=== PATIENT | male | born 1965 ===

== ENCOUNTER 2021-04-23 17:39 | Emergency (ER) | payer SELFPAY ==
[2021-04-23] MEDS ORDERED: DOPAMINE/D5W PMX 400 MG/250 ML ONE (18:24)
[2021-04-23] MEDS ORDERED: CALCIUM CHLORIDE 10%, 10ML SYR ONE (18:24)
[2021-04-23] MEDS ORDERED: EPINEPHRINE SYRINGE 0.1 MG/ML, 10ML ONE (18:24)
[2021-04-23] MEDS ORDERED: CODE BLUE RESPONSE XX ONE (18:24)
[2021-04-23] MEDS ORDERED: SODIUM BICARB 8.4%, 50ML SYRINGE ONE (18:24)
[2021-04-23] MEDS ORDERED: NALOXONE 1 MG/ML, 2ML ONE (18:24)
[2021-04-23] MEDS ORDERED: PLEASE ENTER HEIGHT AND WEIGHT MC SCH (18:30)
[2021-04-23] MEDS ORDERED: SODIUM CHLORIDE FLUSH 10ML SYR IVF ONE (18:30)
[2021-04-23] MEDS ORDERED: SODIUM CHLORIDE 0.9% 1,000ML IVBOLUS ONE (18:30)
[2021-04-23] MEDS ORDERED: PLEASE ENTER ALLERGIES MC SCH (18:30)
--- NOTE | 2021-04-23 18:31 | NUR ---
SEE CODE SHEET FOR DETAILS
--- NOTE | 2021-04-23 18:53 | NUR ---
SPOKE WITH CORENOR AND DUE TO NO NEXT OF KIN IDENTIFIED AND UNKNOWN CERCUMSTANCES REGARDING SITUATION THIS WILL BE A CORONERS CASE. [employer] NETWORK NOTIFIED
--- NOTE | 2021-04-23 18:59 | NUR ---
SW GIVEN PTS ID TO ATTEMPT TO LOCATE NEXT OF KIN
--- NOTE | 2021-04-23 19:22 | NUR ---
medical staff services coordinator at bedside at this time.
--- NOTE | 2021-04-23 19:35 | NUR ---
all belongings with bilingual medical assistant
== END 2021-04-23 20:45 | disposition expired ==
LOC: EDBD 17:39 → ED 19:11
DX: I46.9 Cardiac arrest, cause unspecified (principal); N18.9 Chronic kidney disease, unspecified; I73.9 Peripheral vascular disease, unspecified; I45.10 Unspecified right bundle-branch block; R23.0 Cyanosis; Z99.2 Dependence on renal dialysis
CPT/HCPCS: 31500; 36556; 80047; 82962; 92950; 93005; 99291; J1265; J2310